=== PATIENT | female | born 1955 | race Caucasian/White ===

== ENCOUNTER → 2022-06-18 08:40 | Outpatient (BNVA) | payer MEDICARE, SELFPAY | PROVIDERS: PCP Family Medicine; Visit Provider Internal Medicine Rheumatology | DX: M05.79 Rheumatoid arthritis with rheumatoid factor of multiple sites without organ or systems involvement (principal); M81.0 Age-related osteoporosis without current pathological fracture; Z79.899 Other long term (current) drug therapy; Z71.85 Encounter for immunization safety counseling; Z79.52 Long term (current) use of systemic steroids; Z96.651 Presence of right artificial knee joint; M19.041 Primary osteoarthritis, right hand; M19.042 Primary osteoarthritis, left hand | CPT/HCPCS: 99204 ==

== ENCOUNTER 2022-07-16 12:20 | Outpatient (CLI) | payer MEDICARE, SELFPAY ==
--- NOTE | 2022-07-16 13:00 | XR_ITS ---
WS: [id number] DEXA (DUAL ENERGY X-RAY ABSORPTIOMETRY) Bone mineral density was performed using a Poxel machine. HISTORY: M81.0 - Age-related osteoporosis without current pathology... COMPARISON: 06/02/2018 Lumbar spine BMD (L1-L4): 0.878 g/cm2 T score: -2.5 Z score: -0.6 Total hip BMD: Left: 0.553 g/cm2. T score: -3.6 Z score: -2.0 Right: 0.494 g/cm2. T score: -4.1 Z score: -2.5 10 year probability of a major osteoporotic fracture is 47.5%. Compared to the prior study from 06/02/2018. Lumbar spine bone mineral density has decreased by 4.8%. Bilateral hips bone mineral density has decreased by 24.5%. XR/XR DEXA axial skeleton* [id number] IMPRESSION: OSTEOPOROSIS based upon the WHO classification for females. Significant decrease in bone mineral density within the lumbar spine and hips s mary the prior study.
== END 2022-07-16 12:21 | disposition home or self-care (01) ==
LOC: RAD 12:20
PROVIDERS: PCP Family Medicine; Visit Provider Internal Medicine Rheumatology
DX: M81.0 Age-related osteoporosis without current pathological fracture (principal)
CPT/HCPCS: 77080

== ENCOUNTER 2022-07-22 12:25 | Outpatient (CLI) | payer MEDICARE, SELFPAY | END 2022-07-22 12:26 | disposition home or self-care (01) | PROVIDERS: PCP Family Medicine; Visit Provider Family Medicine | DX: J44.9 Chronic obstructive pulmonary disease, unspecified (principal) | CPT/HCPCS: 94010; 94729 ==

== ENCOUNTER → 2022-09-09 11:19 | Outpatient (BNVA) | payer MEDICARE, SELFPAY | PROVIDERS: PCP Family Medicine; Visit Provider Internal Medicine Rheumatology | DX: M05.79 Rheumatoid arthritis with rheumatoid factor of multiple sites without organ or systems involvement (principal); Z79.899 Other long term (current) drug therapy; Z71.85 Encounter for immunization safety counseling; M81.0 Age-related osteoporosis without current pathological fracture; Z79.52 Long term (current) use of systemic steroids; Z96.651 Presence of right artificial knee joint | CPT/HCPCS: 99214 ==

== ENCOUNTER → 2023-02-04 14:17 | Outpatient (BNVA) | payer MEDICARE, SELFPAY | PROVIDERS: PCP Family Medicine; Visit Provider Internal Medicine Rheumatology | DX: M05.79 Rheumatoid arthritis with rheumatoid factor of multiple sites without organ or systems involvement (principal); Z79.899 Other long term (current) drug therapy; Z71.85 Encounter for immunization safety counseling; M81.0 Age-related osteoporosis without current pathological fracture | CPT/HCPCS: 99214 ==

== ENCOUNTER → 2023-03-17 15:29 | Outpatient (BNVA) | payer MEDICARE, SELFPAY | PROVIDERS: PCP Family Medicine; Visit Provider Nurse Practitioner Family | DX: M25.572 Pain in left ankle and joints of left foot (principal) | CPT/HCPCS: 73610 ==

== ENCOUNTER 2023-04-08 14:21 | Emergency (ER) | payer MEDICARE, SELFPAY ==
[2023-04-08 14:27] VITALS: BP 148/75; PULSE 79; RESP 18; TEMP 36.7; O2SAT 97; BMI 21.2
--- NOTE | 2023-04-08 14:37 | CTR_ITS ---
PROCEDURE INFORMATION: Exam: CT Chest With Contrast; Diagnostic Exam date and time: 04/08/2023 3:54 PM Age: 67 years old Clinical indication: Abdominal pain; Chest wall pain; Additional info: Pain post trauma TECHNIQUE: Imaging protocol: Diagnostic computed tomography of the chest with contrast. Radiation optimization: All CT scans at this facility use at least one of these dose optimization techniques: automated exposure control; mA and/or kV adjustment per patient size (includes targeted exams where dose is matched to clinical indication); or iterative reconstruction. Contrast material: OMNI 350; Contrast volume: 100 ml; Contrast route: INTRAVENOUS (IV); REPORTING DATA: Count of CT and Cardiac NM exams in prior 12 months: This patient has received 0 known CTs and 0 known cardiac nuclear medicine studies in the 12 months prior to the current study. COMPARISON: CR XR ribs BI mn 4V w CXR1V [id number] 07/23/2021 2:18 PM RADIATION DOSE METRICS: Total DLP (mGy-cm): 490 FINDINGS: Lungs: Mild emphysematous changes with some scattered subpleural blebs upper lung zones. Mild depended hypoventilatory changes with subpleural ground-glass opacities likely secondary to microatelectasis. Pleural spaces: Unremarkable. No pneumothorax. No pleural effusion. Heart: Heart is borderline enlarged. No significant coronary artery calcifications or pericardial effusion. Lymph nodes: Unremarkable. No enlarged lymph nodes. Vasculature: Scattered atherosclerotic changes of the thoracic aorta. No evidence of aortic injury aneurysm or dissection. Bones/joints: Prior right shoulder replacement. No acute bony abnormalities. Soft tissues: No evidence of mediastinal injury or hematoma. COMMENTS: In the absence of a history or active diagnosis of lung cancer, it is recommended that this patient with emphysema be evaluated for enrollment in a low dose CT lung cancer screening program. PROCEDURE INFORMATION: Exam: CT Abdomen And Pelvis With Contrast Exam date and time: 04/08/2023 3:54 PM Age: 67 years old Clinical indication: Abdominal pain; Chest wall pain; Additional info: Pain post trauma TECHNIQUE: Imaging protocol: Computed tomography of the abdomen and pelvis with contrast. Radiation optimization: All CT scans at this facility use at least one of these dose optimization techniques: automated exposure control; mA and/or kV adjustment per patient size (includes targeted exams where dose is matched to clinical indication); or iterative reconstruction. Contrast material: OMNI 350; Contrast volume: 100 ml; Contrast route: INTRAVENOUS (IV); REPORTING DATA: Count of CT and Cardiac NM exams in prior 12 months: This patient has received 0 known CTs and 0 known cardiac nuclear medicine studies in the 12 months prior to the current study. COMPARISON: CR XR thoracic spine 3V* [id number] 07/23/2022 11:28 AM RADIATION DOSE METRICS: Total DLP (mGy-cm): 252.9 FINDINGS: Lungs: Please refer to discussion of CT chest exam. Liver: Liver is unremarkable. No evidence of liver injury. Gallbladder and bile ducts: Normal. No calcified stones. No ductal dilation. Pancreas: Unremarkable. Main pancreatic duct is not significantly dilated. Spleen: Spleen is unremarkable. No evidence of splenic injury. Adrenal glands: Normal. No mass. Kidneys and ureters: Small nonobstructing left renal stone. Multiple left renal cysts measuring up to 4 cm likely benign based on density readings. Stomach and bowel: Few scattered diverticuli large bowel otherwise GI tract is unremarkable. Appendix: No evidence of appendicitis. Intraperitoneal space: Unremarkable. No free air. No significant fluid collection. Vasculature: Diffuse atherosclerotic changes of the abdominal aorta and iliac vessels with scattered calcified plaque. Small intraluminal thrombus arising from the posterior aortic wall within the upper abdominal aorta. No evidence of aortic injury.rr Lymph nodes: Unremarkable. No enlarged lymph nodes. Urinary bladder: Urinary bladder is mildly distended. 5 cm cystic structure abutting the right posterior bladder wall probably representing a large bladder diverticulum. Reproductive: Uterus has been removed. Bones/joints: Moderate multilevel degenerative changes lower lumbar spine. No acute bony abnormalities. Soft tissues: Unremarkable. CT/CT chest abdpel w/*[id number] IMPRESSION: No evidence of intrathoracic injury. IMPRESSION: 1. No evidence of abdominal or pelvic injury. 2. 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 Atherosclerotic changes with focal intraluminal thrombus upper abdominal aorta. 4. Additional chronic findings as above. COMMENTS: Consistent with the [employer]'s Incidental Findings Committee white paper (J Am Kelsie Radiol 2018): Any incidental renal lesion less than 1 cm or classified as too small to characterize, or any incidental cystic renal lesion characterized as simple-appearing, is likely benign. No follow-up imaging is recommended for these lesions per consensus recommendations based on imaging criteria.
--- NOTE | 2023-04-08 14:37 | CTR_ITS ---
PROCEDURE INFORMATION: Exam: CT Cervical Spine Without Contrast Exam date and time: 04/08/2023 3:49 PM Age: 67 years old Clinical indication: Neck pain; Additional info: Pain post fall TECHNIQUE: Imaging protocol: Computed tomography of the cervical spine without contrast. Radiation optimization: All CT scans at this facility use at least one of these dose optimization techniques: automated exposure control; mA and/or kV adjustment per patient size (includes targeted exams where dose is matched to clinical indication); or iterative reconstruction. REPORTING DATA: Count of CT and Cardiac NM exams in prior 12 months: This patient has received 0 known CTs and 0 known cardiac nuclear medicine studies in the 12 months prior to the current study. COMPARISON: CR XR thoracic spine 3V* [id number] 07/23/2022 11:28 AM RADIATION DOSE METRICS: Total DLP (mGy-cm): 160.95 FINDINGS: Bones/joints: Reversal of normal cervical lordosis likely degenerative in nature and in part secondary to degenerative spondylolisthesis C3-C4. Multilevel degenerative changes with diffuse disc space narrowing, endplate sclerosis and osteophytic lipping C3-C4, C4-C5, C5-C6 and C6-C7. Moderate degenerative facet arthrosis present on the left at C3-C4. No severe spinal or foraminal stenosis. No evidence of fracture or traumatic subluxation. Lungs: Lung apices are normal. Soft tissues: Unremarkable. CT/CT cervical spin wo con* [id number] IMPRESSION: 1. No acute bony abnormalities. 2. Multilevel degenerative changes throughout the cervical spine with mild degenerative spondylolisthesis C3-C4.
--- NOTE | 2023-04-08 14:37 | ECG_ITS ---
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 Measurements Intervals [place] Rate: 74 P: 46 DE: 134 QRS: 43 QRSD: 86 T: 42 QT: 351 QTc: 391 Interpretive Statements SINUS RHYTHM WITH SINUS ARRHYTHMIA INTERPRETATION BASED ON A DEFAULT AGE OF 40 YEARS No previous ECG available for comparison Electronically Signed On 04-08-2023 17:00:25 CDT by Ken Manzano M.D. [email or web address] health [email or web address]/[id number] f
[2023-04-08] MEDS: morphine 4 mg/mL SDV 1 mL IVP (14:46)
[2023-04-08] MEDS: ondansetron 2 mg/ML SDV 2 mL 4 MG IVP (14:46)
[2023-04-08 14:47] VITALS: BP 148/75; PULSE 75
[2023-04-08] MEDS: nitroglycerin 1 gm/inch oint Pkt 0.5 INCH TOPICAL (14:47)
[2023-04-08 15:01] LABS: Basophils # 0.1 10^3/uL (0.0-0.1); Basophils % 0.6 %; Eosinophils # 0.2 10^3/uL (0.0-0.8); Eosinophils % 1.7 %; Hematocrit 36.4 % (37.0-47.0); Hemoglobin 11.6 g/dL (11.5-15.3); Lymphocytes # 2.6 10^3/uL (0.8-4.8); Lymphocytes % 27.4 %; Mean Corpuscular HGB Conc 31.9 g/dL (30.0-36.0); Mean Corpuscular Volume 106.7 fl (81-99); Mean Platelet Volume 9.8 fL (7.4-10.4); Monocytes % 10.1 %; Neutrophils # 5.65 10^3/uL (1.8-7.7); Neutrophils % 59.8 %; Nucleated Red Blood Cells % 0 %; Platelet Count 290 10^3/cmm (130-400); Red Blood Count 3.41 10^6/uL (4.1-5.3); Red Cell Distribution Width 13.2 % (12.1-15.1); White Blood Count 9.5 10^3/uL (4.0-10.0)
[2023-04-08 15:34] LABS: Alanine Aminotransferase 11 U/L (0-33); Albumin Level 3.8 g/dL (3.5-5.2); Alkaline Phosphatase 63 U/L (35-105); Aspartate Amino Transferase 15 U/L (0-32); Blood Urea Nitrogen 13 mg/dL (8-23); Calcium 8.7 mg/dL (8.5-10.5); Carbon Dioxide 26 mmol/L (22-29); Chloride 103 mmol/L (98-107); Glomerular Filtration Rate 62.1 mL/min (90-130); Glucose 90 mg/dL (65-115); Lipase 42 U/L (13-60); Osmolality Calculated 288 mOsm/kg (285-295); Sodium 139 mmol/L (136-145); Total Bilirubin 0.3 mg/dL (0.15-1.2); Total Protein 5.8 g/dL (6.6-8.7)
[2023-04-08 15:37] LABS: Troponin(5th) Baseline 12 ng/L (0-10)
--- NOTE | 2023-04-08 15:51 | W.ED.CHESTPA ---
HPI - Chest Pain General: Chief Complaint: Chest Pain Stated Complaint: chest chain, LT arm pain, neck pain Time Seen by Provider: 04/08/23 14:31 History of Present Illness: 67-year-old female presents emergency room with left-sided chest pain neck pain and arm pain that started about few hours ago. Patient described the pain as aching sensation with severity of 7 out of 10 especially with movement and deep breathing. She further feels that she fell 3 days ago and landed on a box. Patient did not seek any medical attention after the fall with any head injury, loss of consciousness, nausea, vomiting, blurry vision or change in vision. Patient denies any swelling, coughing, coughing up blood or vomiting blood. No leg swelling or calf tenderness. Associated symptoms: Deny abdominal pain, dyspnea, fever(s), nausea, palpitations, syncope or vomiting Review of Systems General: Reports: 10 or more systems reviewed and unremarkable except in HPI and below Const: Denies: fever(s), chills, body aches, change in weight, fatigue or malaise Eyes: Denies: change in vision, blurry vision or blind spots Card: Reports: chest pain; Denies: palpitations, irregular heart rhythm, edema, swelling of feet/ankles, lightheadedness, syncope or pre-syncope Resp: Denies: dyspnea, productive cough or non-productive cough GI: Denies: abdominal pain, nausea, vomiting, hematemesis, coffee ground emesis or dysphagia Musc: Reports: neck pain and extremity pain; Denies: extremity swelling, joint swelling, joint redness, joint warmth, joint stiffness, limited range of motion, muscle weakness or decrease in muscle mass Neuro: Denies: headache(s), numbness in extremities, weakness in extremities, lack of coordination, frequent falls, dizziness, vertigo or confusion PFSH ED PFSH: Medical History Acute rheumatoid arthritis Bulging disc Cervical disc disease DJD (degenerative joint disease), lumbar Fibromyalgia High risk medication use Immunization counseling Insomnia Neuropathy Osteoporosis Rheumatoid arthritis Seropositive rheumatoid arthritis of multiple sites Surgical History H/O shoulder replacement right History of appendectomy History of hysterectomy Total knee replacement status right Family History Other CHF (congestive heart failure) Cancer Chronic kidney disease (CKD) Diabetes Family history of premature coronary artery disease Rheumatoid arthritis Denies family history of Lupus Lung disease Stroke Social History Smoking and tobacco status: current every day smoker Physical Exam Neck/C-Spine: COMMON NORMALS: no JVD and Thyroid normal GENERAL: No lymphadenopathy, Yes tender (Pain upon palpation mostly on the left side of the neck. No palpable mass ), No torticollis, No tracheal deviation, No tracheostomy present, No JVD, No submandibular swelling and No Meningeal signs present THYROID: Thyroid normal, symmetrical, not diffusely enlarged, not firm and no lateral enlargement CAROTIDS: Yes normal carotid upstroke, No delayed carotid upstroke and No bounding pulses Chest: CHEST: Yes localized rib tenderness with anteroposterior compression, No Sternal flail present, No mass, No sinus tracts, Yes tenderness, No laceration, No abrasion, No Ecchymosis present, No wounds, No Surgical scars present (Chest), No Vascular access present, No Pacemaker present and No rash Chest images (female): 1. Areas with tenderness upon palpation no palpable deformity, no laceration or obvious rash or lesion. Pain with arm movement. Resp: COMMON NORMALS: normal respiratory effort, No retractions, No use of accessory muscles, clear to auscultation bilaterally and percussion normal AUSCULTATION: clear to auscultation bilaterally PERCUSSION: percussion normal Cardio: COMMON NORMALS: no JVD, regular rate, regular rhythm, S1 normal heart sound present, S2 normal heart sound present, No gallops present (Cardio), No clicks present (Cardio), No murmurs present (Cardio), No rub (Cardio) and Peripheral pulses 2+ throughout RATE: regular rate RHYTHM: regular rhythm HEART SOUNDS: S1 normal heart sound present and S2 normal heart sound present PERIPHERAL PULSES: Peripheral pulses 2+ throughout GI: COMMON NORMALS: Normal to inspection, nondistended, normoactive bowel sounds present, Soft to palpation, non-tender, No hepatosplenomegaly present, no masses and no bruits PALPATION: Yes Soft to palpation and Yes No hepatosplenomegaly present Course Vital Signs: Vital signs: Vital Signs Temperature 98.0 F 04/08/23 14:27 Pulse Rate 75 04/08/23 16:46 Respiratory Rate 15 04/08/23 17:39 Blood Pressure 157/74 04/08/23 16:46 Pulse Oximetry 98 04/08/23 16:46 Oxygen Delivery Me thod Room Air 04/08/23 14:27 MDM - Chest Pain Medical Decision Making Patient was medical for the emergency room. Patient has extensive work-up done including CT, troponin x2. Patient has been comfortable with pain medication. Discussed CT findings with patient. He was reassured and will be discharged home with close follow-up PCP. Lab Data 04/08/23 14:43 04/08/23 14:43 Radiology Impressions Cervical Spine CT 04/08/23 14:37 IMPRESSION: 1. No acute bony abnormalities. 2. Multilevel degenerative changes throughout the cervical spine with mild degenerative spondylolisthesis C3-C4. Chest/Abdomen/Pelvis CT 04/08/23 14:37 IMPRESSION: No evidence of intrathoracic injury. IMPRESSION: 1. No evidence of abdominal or pelvic injury. 2. 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 Atherosclerotic changes with focal intraluminal thrombus upper abdominal aorta. 4. Additional chronic findings as above. COMMENTS: Consistent with the [place] [employer]'s Incidental Findings Committee white paper (J Am Kelsie Radiol 2018): Any incidental renal lesion less than 1 cm or classified as too small to characterize, or any incidental cystic renal lesion characterized as simple-appearing, is likely benign. No follow-up imaging is recommended for these lesions per consensus recommendations based on imaging criteria. Laboratory Results WBC 9.5 10^3/uL (4.0-10.0) 04/08/23 14:43 RBC 3.41 10^6/uL (4.1-5.3) L 04/08/23 14:43 Hgb 11.6 g/dL (11.5-15.3) 04/08/23 14:43 Hct 36.4 % (37.0-47.0) L 04/08/23 14:43 MCV 106.7 fl (81-99) H 04/08/23 14:43 MCH 34.0 pg (28.0-34.0) 04/08/23 14:43 MCHC 31.9 g/dL (30.0-36.0) 04/08/23 14:43 RDW 13.2 % (12.1-15.1) 04/08/23 14:43 Plt Count 290 10^3/cmm (130-400) 04/08/23 14:43 MPV 9.8 fL (7.4-10.4) 04/08/23 14:43 Neut % (Auto) 59.8 % 04/08/23 14:43 Lymph % (Auto) 27.4 % 04/08/23 14:43 Whitman % (Auto) 10.1 % 04/08/23 14:43 Eos % (Auto) 1.7 % 04/08/23 14:43 Baso % (Auto) 0.6 % 04/08/23 14:43 Neut # (Auto) 5.65 10^3/uL (1.8-7.7) 04/08/23 14:43 Lymph # (Auto) 2.6 10^3/uL (0.8-4.8) 04/08/23 14:43 Whitman # (Auto) 1.0 10^3/uL (0.2-0.9) H 04/08/23 14:43 Eos # (Auto) 0.2 10^3/uL (0.0-0.8) 04/08/23 14:43 Baso # (Auto) 0.1 10^3/uL (0.0-0.1) 04/08/23 14:43 Nucleated RBC % (auto) 0 % 04/08/23 14:43 Nucleated RBCs # 0.0 /100WBC 04/08/23 14:43 Sodium 139 mmol/L (136-145) 04/08/23 14:43 Potassium 4.0 mmol/L (3.5-5.1) 04/08/23 14:43 Chloride 103 mmol/L (98-107) 04/08/23 14:43 Carbon Dioxide 26 mmol/L (22-29) 04/08/23 14:43 Anion Gap 14.0 (5-19) 04/08/23 14:43 BUN 13 mg/dL (8-23) 04/08/23 14:43 Creatinine 0.9 mg/dL (0.5-0.9) 04/08/23 14:43 GFR Calculation 62.1 mL/min (90-130) L 04/08/23 14:43 Glucose 90 mg/dL (65-115) 04/08/23 14:43 Calculated Osmolality 288 mOsm/kg (285-295) 04/08/23 14:43 Calcium 8.7 mg/dL (8.5-10.5) 04/08/23 14:43 Total Bilirubin 0.3 mg/dL (0.15-1.2) 04/08/23 14:43 AST 15 U/L (0-32) 04/08/23 14:43 ALT 11 U/L (0-33) 04/08/23 14:43 Alkaline Phosphatase 63 U/L (35-105) 04/08/23 14:43 Troponin T Baseline 12 ng/L (0-10) H 04/08/23 14:43 Troponin T 120 Minute 6.57 ng/L (0-10) 04/08/23 16:52 Delta Troponin T -5.43 ABS# (0-10) L 04/08/23 16:52 Total Protein 5.8 g/dL (6.6-8.7) L 04/08/23 14:43 Albumin 3.8 g/dL (3.5-5.2) 04/08/23 14:43 Globulin 2.0 g/dL (1.3-4.6) 04/08/23 14:43 Lipase 42 U/L (13-60) 04/08/23 14:[address] Chest: My impression: No obvious acute findings chronic changes noted. EKG Data EKG 1: Interpretation: Sinus rhythm rate of [address] elevation. Interval 134 QT interval of 351 Other Data Heart score for this patient is 2 standard age presenting symptoms. Patient with negative troponin negative EKG and limited Discharge Plan Discharge Patient Disposition: Home Clinical Impression: Chest pain, Chest wall contusion, Myalgia, Fall Condition: Stable Prescriptions: New ultram 50 mg PO BID PRN (Reason: pain) Qty: 20 0RF flexeril 5 mg PO TID PRN (Reason: pain ) Qty: 25 0RF No Action potassium gluconate 550 mg (90 mg) tablet 550 mg PO DAILY vitamin B complex [B Complex-Vitamin B12] Tablet 1 tab PO DAILY biotin 10,000 mcg capsule 10,000 mcg PO cholecalciferol (vitamin D3) 25 mcg (1,000 unit) capsule 25 mcg PO DAILY zinc acetate PO gabapentin 300 mg capsule 300 mg PO QID Humira 40 mg/0.8 mL syringe kit See Rx Instructions SUBCUT .COMPLEX Qty: 2 3RF Rx Instructions: inject one - 40 mg/0.8 mL syringe every 2 weeks SUBCUT diclofenac sodium 1 % gel 2 g topical QID Qty: 100 2RF Rx Instructions: apply to affected area as needed folic acid 1 mg tablet 1 mg PO DAILY Qty: 90 3RF methotrexate sodium 2.5 mg tablet See Rx Instructions PO .Q7days Qty: 30 3RF Rx Instructions: take 6 tabs on same day once a week PO .Q7days; prednisone 5 mg tablet 7.5 mg PO DAILY Qty: 135 1RF tramadol 50 mg tablet 50 mg PO TID PRN (Reason: pain) Qty: 60 1RF Discharge Orders: Discharge ED (Routine); Ordered 04/08/23 Ordered By: Shanda Longoria Referrals: Vasu Saeed MD [Primary Care Provider] - Patient Instructions: Opioid Safety, Pain Management Coding Level of Care Code ED Drum Attendant for Whitney Hagan
[2023-04-08] MEDS: iohexol 350 mg/mL 500 mL Btl (per mL) IV (16:11)
[2023-04-08 16:46] VITALS: BP 157/74; PULSE 75; RESP 21; O2SAT 98
[2023-04-08 17:39] VITALS: RESP 15
[2023-04-08] MEDS: HYDROmorphone 1 mg/mL INJ 1 mL 0.5 MG IVP (17:39)
[2023-04-08 17:53] LABS: Troponin 5 2HR 6.57 ng/L (0-10)
[2023-04-08 17:56] LABS: Troponin 5 2HR Delta -5.43 ABS# (0-10)
[2023-04-08] MEDS: TRAMadol 50 mg Tablet 100 MG PO (19:19)
[2023-04-08 19:20] VITALS: BP 134/72; PULSE 67; RESP 16
[2023-04-08 19:23] VITALS: BP 134/72; PULSE 67; RESP 16; TEMP 36.7; O2SAT 98
--- NOTE | 2023-04-08 23:09 | ED_ITS ---
HPI - Chest Pain General: Chief Complaint: Chest Pain Stated Complaint: chest chain, LT arm pain, neck pain Time Seen by Provider: 04/08/23 14:31 PFSH ED PFSH: Medical History Acute rheumatoid arthritis Bulging disc Cervical disc disease DJD (degenerative joint disease), lumbar Fibromyalgia High risk medication use Immunization counseling Insomnia Neuropathy Osteoporosis Rheumatoid arthritis Seropositive rheumatoid arthritis of multiple sites Surgical History H/O shoulder replacement right History of appendectomy History of hysterectomy Total knee replacement status right Family History Other CHF (congestive heart failure) Cancer Chronic kidney disease (CKD) Diabetes Family history of premature coronary artery disease Rheumatoid arthritis Denies family history of Lupus Lung disease Stroke Social History Smoking and tobacco status: current every day smoker Course Vital Signs: Vital signs: Vital Signs Temperature 98.0 F 04/08/23 19:23 Pulse Rate 67 04/08/23 19:23 Respiratory Rate 16 04/08/23 19:23 Blood Pressure 134/72 04/08/23 19:23 Pulse Oximetry 98 04/08/23 19:23 Oxygen Delivery Me thod Room Air 04/08/23 14:27 MDM - Chest Pain Lab Data 04/08/23 14:43 04/08/23 14:43 Radiology Impressions Cervical Spine CT 04/08/23 14:37 IMPRESSION: 1. No acute bony abnormalities. 2. Multilevel degenerative changes throughout the cervical spine with mild degenerative spondylolisthesis C3-C4. Chest/Abdomen/Pelvis CT 04/08/23 14:37 IMPRESSION: No evidence of intrathoracic injury. IMPRESSION: 1. No evidence of abdominal or pelvic injury. 2. 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 Atherosclerotic changes with focal intraluminal thrombus upper abdominal aorta. 4. Additional chronic findings as above. COMMENTS: Consistent with the [place] [employer]'s Incidental Findings Committee white paper (J Am Kelsie Radiol 2018): Any incidental renal lesion less than 1 cm or classified as too small to characterize, or any incidental cystic renal lesion characterized as simple-appearing, is likely benign. No follow-up imaging is recommended for these lesions per consensus recommendations based on imaging criteria. Laboratory Results WBC 9.5 10^3/uL (4.0-10.0) 04/08/23 14:43 RBC 3.41 10^6/uL (4.1-5.3) L 04/08/23 14:43 Hgb 11.6 g/dL (11.5-15.3) 04/08/23 14:43 Hct 36.4 % (37.0-47.0) L 04/08/23 14:43 MCV 106.7 fl (81-99) H 04/08/23 14:43 MCH 34.0 pg (28.0-34.0) 04/08/23 14:43 MCHC 31.9 g/dL (30.0-36.0) 04/08/23 14:43 RDW 13.2 % (12.1-15.1) 04/08/23 14:43 Plt Count 290 10^3/cmm (130-400) 04/08/23 14:43 MPV 9.8 fL (7.4-10.4) 04/08/23 14:43 Neut % (Auto) 59.8 % 04/08/23 14:43 Lymph % (Auto) 27.4 % 04/08/23 14:43 [place] % (Auto) 10.1 % 04/08/23 14:43 Eos % (Auto) 1.7 % 04/08/23 14:43 Baso % (Auto) 0.6 % 04/08/23 14:43 Neut # (Auto) 5.65 10^3/uL (1.8-7.7) 04/08/23 14:43 Lymph # (Auto) 2.6 10^3/uL (0.8-4.8) 04/08/23 14:43 [place] # (Auto) 1.0 10^3/uL (0.2-0.9) H 04/08/23 14:43 Eos # (Auto) 0.2 10^3/uL (0.0-0.8) 04/08/23 14:43 Baso # (Auto) 0.1 10^3/uL (0.0-0.1) 04/08/23 14:43 Nucleated RBC % (auto) 0 % 04/08/23 14:43 Nucleated RBCs # 0.0 /100WBC 04/08/23 14:43 Sodium 139 mmol/L (136-145) 04/08/23 14:43 Potassium 4.0 mmol/L (3.5-5.1) 04/08/23 14:43 Chloride 103 mmol/L (98-107) 04/08/23 14:43 Carbon Dioxide 26 mmol/L (22-29) 04/08/23 14:43 Anion Gap 14.0 (5-19) 04/08/23 14:43 BUN 13 mg/dL (8-23) 04/08/23 14:43 Creatinine 0.9 mg/dL (0.5-0.9) 04/08/23 14:43 GFR Calculation 62.1 mL/min (90-130) L 04/08/23 14:43 Glucose 90 mg/dL (65-115) 04/08/23 14:43 Calculated Osmolality 288 mOsm/kg (285-295) 04/08/23 14:43 Calcium 8.7 mg/dL (8.5-10.5) 04/08/23 14:43 Total Bilirubin 0.3 mg/dL (0.15-1.2) 04/08/23 14:43 AST 15 U/L (0-32) 04/08/23 14:43 ALT 11 U/L (0-33) 04/08/23 14:43 Alkaline Phosphatase 63 U/L (35-105) 04/08/23 14:43 Troponin T Baseline 12 ng/L (0-10) H 04/08/23 14:43 Troponin T 120 Minute 6.57 ng/L (0-10) 04/08/23 16:52 Delta Troponin T -5.43 ABS# (0-10) L 04/08/23 16:52 Total Protein 5.8 g/dL (6.6-8.7) L 04/08/23 14:43 Albumin 3.8 g/dL (3.5-5.2) 04/08/23 14:43 Globulin 2.0 g/dL (1.3-4.6) 04/08/23 14:43 Lipase 42 U/L (13-60) 04/08/23 14:43 Discharge Plan Discharge Patient Disposition: Home Clinical Impression: Chest pain, Chest wall contusion, Myalgia, Fall Condition: Stable Prescriptions: New ultram 50 mg PO BID PRN (Reason: pain) Qty: 20 0RF flexeril 5 mg PO TID PRN (Reason: pain ) Qty: 25 0RF No Action potassium gluconate 550 mg (90 mg) tablet 550 mg PO DAILY vitamin B complex [B Complex-Vitamin B12] Tablet 1 tab PO DAILY biotin 10,000 mcg capsule 10,000 mcg PO cholecalciferol (vitamin D3) 25 mcg (1,000 unit) capsule 25 mcg PO DAILY zinc acetate PO gabapentin 300 mg capsule 300 mg PO QID Humira 40 mg/0.8 mL syringe kit See Rx Instructions SUBCUT .COMPLEX Qty: 2 3RF Rx Instructions: inject one - 40 mg/0.8 mL syringe every 2 weeks SUBCUT diclofenac sodium 1 % gel 2 g topical QID Qty: 100 2RF Rx Instructions: apply to affected area as needed folic acid 1 mg tablet 1 mg PO DAILY Qty: 90 3RF methotrexate sodium 2.5 mg tablet See Rx Instructions PO .Q7days Qty: 30 3RF Rx Instructions: take 6 tabs on same day once a week PO .Q7days; prednisone 5 mg tablet 7.5 mg PO DAILY Qty: 135 1RF tramadol 50 mg tablet 50 mg PO TID PRN (Reason: pain) Qty: 60 1RF Discharge Orders: Discharge ED (Routine); Ordered 04/08/23 Ordered By: Shanda Longoria Referrals: Vasu Saeed MD [Primary Care Provider] - Patient Instructions: Opioid Safety, Pain Management Coding Level of Care Code ED Data Center Solutions Architect for Whitney Hagan
== END 2023-04-08 19:24 | disposition home or self-care (01) ==
PROVIDERS: Emergency Provider Family Medicine; PCP Family Medicine
DX: S20.219A Contusion of unspecified front wall of thorax, initial encounter (principal); M79.10 Myalgia, unspecified site; F17.200 Nicotine dependence, unspecified, uncomplicated; Z79.899 Other long term (current) drug therapy; W19.XXXA Unspecified fall, initial encounter
CPT/HCPCS: 36415; 71260; 72125; 74177; 80053; 83690; 84484; 85025; 93005; 96374; 96375; 99285; J1170; J2270; J2405; Q9967

== ENCOUNTER → 2023-05-11 11:08 | Outpatient (BNVA) | payer MEDICARE, SELFPAY | PROVIDERS: PCP Family Medicine; Visit Provider Internal Medicine Rheumatology | DX: M05.79 Rheumatoid arthritis with rheumatoid factor of multiple sites without organ or systems involvement (principal); Z79.899 Other long term (current) drug therapy; Z71.85 Encounter for immunization safety counseling; M81.0 Age-related osteoporosis without current pathological fracture; Z79.52 Long term (current) use of systemic steroids; Z96.651 Presence of right artificial knee joint; M19.041 Primary osteoarthritis, right hand; M19.042 Primary osteoarthritis, left hand | CPT/HCPCS: 99214 ==

== ENCOUNTER → 2023-08-10 10:25 | Outpatient (BNVA) | payer MEDICARE, SELFPAY | PROVIDERS: PCP Family Medicine; Visit Provider Internal Medicine Rheumatology | DX: Z79.899 Other long term (current) drug therapy (principal); M05.79 Rheumatoid arthritis with rheumatoid factor of multiple sites without organ or systems involvement; Z71.85 Encounter for immunization safety counseling; M81.0 Age-related osteoporosis without current pathological fracture | CPT/HCPCS: 99214 ==

== ENCOUNTER → 2024-02-23 11:02 | Outpatient (BNVA) | payer MEDICARE, SELFPAY | PROVIDERS: PCP Family Medicine; Visit Provider Internal Medicine Rheumatology | DX: M05.79 Rheumatoid arthritis with rheumatoid factor of multiple sites without organ or systems involvement (principal); Z79.899 Other long term (current) drug therapy; Z71.85 Encounter for immunization safety counseling; M81.0 Age-related osteoporosis without current pathological fracture | CPT/HCPCS: 36415; 80076; 82565; 85025; 86140; 99214 ==

== ENCOUNTER 2024-04-29 20:28 | Emergency (ER) | payer MEDICARE, SELFPAY ==
[2024-04-29 20:34] VITALS: BP 119/70; PULSE 76; RESP 16; TEMP 36.7; O2SAT 95
--- NOTE | 2024-04-29 20:47 | XRR_ITS ---
PROCEDURE INFORMATION: Exam: XR Left Knee Exam date and time: 04/29/2024 8:52 PM Age: 68 years old Clinical indication: Left; Prior surgery; Surgery date: 6+ months; Surgery type: Orif lt patella; Patient HX: Lt knee pain/swelling post hyperextension injury; HX lt knee orif TECHNIQUE: Imaging protocol: Radiologic exam of the left knee. Views: 3 views. COMPARISON: CR XR knee LT 3V* [id number] 05/05/2018 3:31 PM FINDINGS: Bones/joints: Linear sclerosis along the proximal medial tibial metadiaphysis is new from prior available remote imaging. Otherwise no evidence of acute fracture or new malalignment. Patellar internal fixation hardware again noted without hardware failure or loosening. Healed fracture of the interpolar patella with mild residual posterior deformities unchanged. No significant joint effusion. Moderate atherosclerotic calcification of the femoral and calf arteries noted. Soft tissues: See Bones/joints finding. XR/XR knee LT 3V* [id number] IMPRESSION: Linear sclerosis along the medial tibial metadiaphysis could be due to chronic osseous stress change or trabecular injury. Otherwise no acute fracture identified.
--- NOTE | 2024-04-29 20:50 | ED_ITS ---
HPI - Extremity Problem General: Chief complaint: Extremity Injury, Lower Stated complaint: left knee injury Time Seen by Provider: 04/29/24 20:43 Source: patient Mode of arrival: wheelchair Limitations: no limitations History of Present Illness: Patient is a 68-year-old female who presents the emergency department complaining of left knee pain prior to arrival. Patient states she was hit directly to the lateral aspect of her left knee by a large dog, notes pain to the medial aspect. History of bilateral knee replacements. States she has walked since, however there is increasingly severe pain and she is having trouble straightening the leg. No distal neurovascular deficits reported. Has not taken anything for pain. No other [id number] treatments at this time. MD Complaint: joint pain Onset (ago): hour(s) Pain Consistency: constant Location: left and knee Radiation: none Relieving factors: nothing Exacerbating factors: range of motion, weight bearing and walking Associated symptoms: Reports no associated symptoms; Deny chest pain, fever(s) or rash Review of Systems General: Reports: 10 or more systems reviewed and unremarkable except in HPI and below Const: Denies: fever(s) or chills Card: Denies: chest pain Resp: Denies: dyspnea or productive cough GI: Denies: abdominal pain, nausea, vomiting or diarrhea : Denies: flank pain Musc: Reports: joint pain and limited range of motion; Denies: neck pain, back pain, extremity pain, extremity swelling, joint swelling, joint redness, joint warmth or muscle weakness Skin/Breast: Denies: rash Neuro: Denies: headache(s), numbness in extremities or weakness in extremities PFS ED PFSH: Medical History Immunization counseling High risk medication use Seropositive rheumatoid arthritis of multiple sites Acute rheumatoid arthritis Cervical disc disease Rheumatoid arthritis Fibromyalgia Osteoporosis DJD (degenerative joint disease), lumbar Neuropathy Insomnia Bulging disc Surgical History History of hysterectomy Total knee replacement status right H/O shoulder replacement right History of appendectomy Family History Other Cancer Chronic kidney disease (CKD) Congestive heart failure (CHF) Diabetes Family history of premature coronary artery disease Rheumatoid arthritis Denies family history of Lupus Lung disease Stroke Social History Smoking and tobacco/nicotine status: never used tobacco/nicotine Physical Exam Const: COMMON NORMALS: no acute distress, patient oriented x3, no limitations, healthy appearing, alert and well nourished HENMT: COMMON NORMALS: normocephalic and atraumatic HEAD & SCALP: normocephalic and atraumatic Neck/C-Spine: COMMON NORMALS: full ROM, supple and no meningeal signs Resp: COMMON NORMALS: normal respiratory effort, No use of accessory muscles and clear to auscultation bilaterally AUSCULTATION: clear to auscultation bilaterally Cardio: COMMON NORMALS: regular rate and regular rhythm RATE: regular rate RHYTHM: regular rhythm Extremity: COMMON NORMALS: capillary refill normal, no joint enlargement and no clubbing, cyanosis or edema NARRATIVE EXTREMITY EXAM: Bilateral anterior scars to her knees. No obvious edema of the left knee joint. Moderate to severe tenderness to palpation of the medial joint line of the left knee. No appreciable joint effusion at this time. Pain with extension. Special testing of the knee not attempted due to patient's reported pain. Neuro: COMMON NORMALS: patient oriented x3, moves all extremities, no focal motor deficits and no sensory deficits noted SENSORIUM/ORIENTATION: Yes alert MENINGEAL SIGNS: Yes no meningeal signs Skin: COMMON NORMALS: no rashes or lesions noted GENERAL SKIN EXAM: no rashes or lesions noted Course Vital Signs: Vital signs: Vital Signs Temperature 98.0 F 04/29/24 20:34 Pulse Rate 73 04/29/24 22:19 Respiratory Rate 16 04/29/24 22:19 Blood Pressure 131/67 04/29/24 22:19 Pulse Oximetry 96 04/29/24 22:19 MDM - Extremity (Nontraumatic) Medical Decision Making Patient evaluated today after a left knee injury when a dog struck her left leg. History of knee surgery on the left side, upon further investigation she had patella fracture that was surgically fixed. Was ambulatory initially after the incident, though this has become increasingly difficult due to the pain. She was given a shot of Toradol here. Vitals normal and her distal lower left extremity exam unremarkable. She did have some medial tenderness to palpation, though laxity of the joint unable to be assessed due to her intolerance to pain. Upon recheck she does note improvement after Toradol, however still states she has pain with extending her left leg. X-ray commented on potential stress change versus trabecular injury, and she will be referred to orthopedics for further evaluation. She denies a's compression device at this time and will be discharged home with return precautions given. RICE therapy discussed. Lab Data Radiology Impressions Knee X-Ray 04/29/24 20:47 IMPRESSION: Linear sclerosis along the medial tibial metadiaphysis could be due to chronic osseous stress change or trabecular injury. Otherwise no acute fracture identified. All radiology interpretation(s) finalized by discharge Discharge Plan Discharge Patient Disposition: Home Clinical Impression: Injury of knee, left Qualifiers: Encounter type: initial encounter Qualified Code(s): S89.92XA - Unspecified injury of left lower leg, initial encounter Condition: Stable Prescriptions: No Action potassium gluconate 550 mg (90 mg) tablet 550 mg PO DAILY vitamin B complex [B Complex-Vitamin B12] Tablet 1 tab PO DAILY biotin 10,000 mcg capsule 10,000 mcg PO cholecalciferol (vitamin D3) 25 mcg (1,000 unit) capsule 25 mcg PO DAILY zinc acetate PO gabapentin 300 mg capsule 300 mg PO QID diclofenac sodium 1 % gel 2 g topical QID Qty: 100 2RF Rx Instructions: apply to affected area as needed folic acid 1 mg tablet 1 mg PO DAILY Qty: 90 3RF fluoxetine PO pantoprazole [Protonix] PO hydroxychloroquine 200 mg tablet 200 mg PO DAILY Qty: 90 1RF methotrexate sodium 2.5 mg tablet See Rx Instructions PO .Q7days Qty: 90 1RF Rx Instructions: take 6 tabs on same day once a week PO .Q7days; prednisone 5 mg tablet 7.5 mg PO DAILY Qty: 135 1RF Humira Pen 40 mg/0.8 mL pen injector kit 40 mg SUBCUT Q14D Qty: 6 0RF tramadol 50 mg tablet 50 mg PO TID PRN (Reason: pain) Qty: 60 1RF flexeril 5 mg PO TID PRN (Reason: pain ) Qty: 25 0RF Discharge Orders: Discharge ED (Routine); Ordered 04/29/24 Ordered By: Tulio Wharton Referrals: Vasu Saeed MD [Primary Care Provider] - Discharge Diet: Usual diet Discharge Activity: Increase activity as tolerated Patient Instructions: Knee Pain (ED) Activity Restrictions/Additional Instructions: Follow-up with orthopedics as discussed. Tylenol or ibuprofen for pain. Gently increase your range of motion as tolerated and weight-bear as tolerated as well. Otherwise follow-up with primary care as needed and return with any new or worsening symptoms. Coding Level of Care Code ED Cardiovascular Surgical Tech for Whitney Hagan
[2024-04-29] MEDS: ketorolac 60 mg/2 mL INJ IM (21:29)
[2024-04-29 22:19] VITALS: BP 131/67; PULSE 73; RESP 16; O2SAT 96
--- NOTE | 2024-04-30 03:18 | DCPLANNER ---
Message sent to Ortho for a follow up on a left knee injury-
== END 2024-04-29 22:20 | disposition home or self-care (01) ==
PROVIDERS: Emergency Provider Physician Assistant; PCP Family Medicine
DX: S89.92XA Unspecified injury of left lower leg, initial encounter (principal); W54.1XXA Struck by dog, initial encounter
CPT/HCPCS: 73562; 96372; 99284; J1885

== ENCOUNTER → 2024-05-10 10:29 | Outpatient (BNVA) | payer MEDICARE, SELFPAY | PROVIDERS: PCP Family Medicine; Visit Provider Nurse Practitioner | DX: M17.12 Unilateral primary osteoarthritis, left knee (principal); M25.362 Other instability, left knee | CPT/HCPCS: 73560; 73565; 99204 ==

== ENCOUNTER 2024-05-12 13:00 | Outpatient (CLI) | payer MEDICARE, SELFPAY ==
--- NOTE | 2024-05-12 13:00 | MR_ITS ---
WS: [id number] MRI LEFT KNEE HISTORY: LEFT knee pain with instability. Prior injury. COMPARISON: Radiograph 05/10/2024 Anterior cruciate ligament: Intact. Posterior cruciate ligament: Intact. Medial collateral ligament: There is fluid and increased T2 signal surrounding the MCL, greatest abov e the knee joint but no tear identified. Posterior lateral corner structures: Intact. There is a small amount of fluid near the fibular collat eral ligament origin from the femoral condyle consistent with at least a partial tear. Medial menisci: Intact. Normal signal, size and shape. Lateral meniscus: Intact. Normal signal, size and shape. Extensor mechanism: Distal quadriceps tendon and patellar tendons are intact. Tendons are partially o bscured by artifact from the patellar fixation hardware. Fluid and soft tissue: Small suprapatellar joint effusion. No Gillette's cyst. Osseous and articular structures: Patellofemoral compartment: Patellofemoral articulation is poorly visualized due to artifact from the hardware in the patella. Medial compartment: Mild narrowing of the medial compartment. Mild chondromalacia. Lateral compartment: Mild narrowing the lateral compartment with mild chondromalacia. There is abnormal signal involving the medial tibial metaphysis consistent with a fracture which is n ondisplaced. There is marrow edema extending anterior to posterior through the medial tibial diaphysi s. There is a smaller amount of edema just distal to the lateral tibial plateau which is probably tra becular injury. Focal marrow edema in the medial femoral condyle. There is trabecular injury and smal l microfractures. No displacement. MR/MR knee LT wo con* [id number] IMPRESSION: 1. Nondisplaced acute fracture involving the medial tibial metaphysis. This co rresponds to the area of sclerosis seen on the recent radiographs. 2. Additional marrow edema and trabecular injury just below the lateral tibial plateau. 3. Marrow edema and trabecular injury medial femoral condyle with suspected mi crofractures. 4. Prior fixation hardware throughout the patella. 5. Fluid surrounding the MCL but no tear confirmed. 6. Partial tear fibular collateral ligament at the femoral condyle.
== END 2024-05-12 13:01 | disposition home or self-care (01) ==
LOC: RAD 13:01
PROVIDERS: PCP Family Medicine; Visit Provider Nurse Practitioner
DX: S82.135A Nondisplaced fracture of medial condyle of left tibia, initial encounter for closed fracture (principal); Z96.652 Presence of left artificial knee joint; S83.402A Sprain of unspecified collateral ligament of left knee, initial encounter
CPT/HCPCS: 73721

== ENCOUNTER 2024-05-13 06:00 | Outpatient (CLI) | payer MEDICARE, SELFPAY | END 2024-05-13 23:59 | disposition home or self-care (01) | LOC: SPT 05-17 14:46 | PROVIDERS: Visit Provider Nurse Practitioner | DX: Z46.89 Encounter for fitting and adjustment of other specified devices (principal); M25.362 Other instability, left knee; M17.12 Unilateral primary osteoarthritis, left knee | CPT/HCPCS: 99214; L1832 ==

== ENCOUNTER → 2024-06-01 08:43 | Outpatient (BNVA) | payer MEDICARE, SELFPAY | PROVIDERS: Visit Provider Nurse Practitioner | DX: M25.362 Other instability, left knee (principal); M17.12 Unilateral primary osteoarthritis, left knee; S82.192A Other fracture of upper end of left tibia, initial encounter for closed fracture; S72.435A Nondisplaced fracture of medial condyle of left femur, initial encounter for closed fracture; W54.1XXA Struck by dog, initial encounter | CPT/HCPCS: 73562; 99213 ==

== ENCOUNTER → 2024-06-22 11:31 | Outpatient (BNVA) | payer MEDICARE, SELFPAY | PROVIDERS: Visit Provider Nurse Practitioner | DX: M17.12 Unilateral primary osteoarthritis, left knee (principal); T14.8XXA Other injury of unspecified body region, initial encounter; L08.9 Local infection of the skin and subcutaneous tissue, unspecified; X58.XXXA Exposure to other specified factors, initial encounter; Z87.81 Personal history of (healed) traumatic fracture | CPT/HCPCS: 73562; 99213 ==

== ENCOUNTER → 2024-06-28 10:54 | Outpatient (BNVA) | payer MEDICARE, SELFPAY | PROVIDERS: Visit Provider Internal Medicine Rheumatology | DX: M05.79 Rheumatoid arthritis with rheumatoid factor of multiple sites without organ or systems involvement (principal); M81.0 Age-related osteoporosis without current pathological fracture; Z71.85 Encounter for immunization safety counseling; Z79.899 Other long term (current) drug therapy; M19.041 Primary osteoarthritis, right hand; M19.042 Primary osteoarthritis, left hand; Z96.651 Presence of right artificial knee joint; Z11.1 Encounter for screening for respiratory tuberculosis; Z11.59 Encounter for screening for other viral diseases | CPT/HCPCS: 36415; 80076; 82550; 85025; 86140; 99214 ==

== ENCOUNTER 2024-07-30 20:02 | Emergency (ER) | payer MEDICARE, SELFPAY ==
[2024-07-30 20:05] VITALS: BP 160/76; PULSE 79; RESP 14; TEMP 36.8; O2SAT 97; BMI 20.7
--- NOTE | 2024-07-30 20:36 | W.ED.WOUNDLC ---
HPI - Wound/Laceration General: Chief Complaint: Wound/Laceration Stated Complaint: lac on right leg Time Seen by Provider: 07/30/24 20:27 History of Present Illness: 69-year-old female who says she dropped a crockpot on her anterior right leg at the beginning of April. She has had a wound there since. The scab fell off a few days ago, and since that time, she has noticed increased redness, with drainage from the ulceration site. It is painful. She has not had a fever. She has a history of rheumatoid arthritis, and does take immune modification drugs. Related Data Home Medications Medication Instructions Recorded Confirmed biotin 10,000 mcg capsule 10,000 mcg PO 06/18/22 06/28/24 cholecalciferol (vitamin D3) 25 25 mcg PO DAILY 06/18/22 06/28/24 mcg (1,000 unit) capsule gabapentin 300 mg capsule 300 mg PO QID 06/18/22 06/28/24 potassium gluconate 550 mg (90 mg) 550 mg PO DAILY 06/18/22 06/28/24 tablet vitamin B complex (B 1 tab PO DAILY 06/18/22 06/28/24 Complex-Vitamin B12 tablet) zinc acetate PO 06/18/22 06/28/24 fluoxetine PO 08/10/23 06/28/24 pantoprazole [Protonix] PO 08/10/23 06/28/24 Previous Rx's Medication Instructions Recorded diclofenac sodium 1 % topical gel 2 g topical QID #100 grams 02/04/23 folic acid 1 mg tablet 1 mg PO DAILY #90 tabs 02/04/23 flexeril 5 mg PO TID PRN pain #25 tabs 04/08/23 hydroxychloroquine 200 mg tablet 200 mg PO DAILY #90 tabs 08/10/23 meloxicam 7.5 mg tablet 7.5 mg PO DAILY #180 tabs 05/11/24 eduardo range of motion brace #1 ea 05/13/24 hydrocodone 5 mg-acetaminophen 325 1 tab PO Q8H PRN pain 5 days #15 05/13/24 mg tablet tabs rolling walker #1 ea 05/13/24 cephalexin 500 mg capsule 500 mg PO TID 7 days #21 caps 06/22/24 mupirocin 2 % topical ointment 1 applic topical BID #15 grams 06/22/24 adalimumab 40 mg/0.8 mL 40 mg (0.8 mL) SUBCUT .every 7 06/29/24 subcutaneous pen kit (Humira Pen) days RA #4 ea methotrexate sodium 2.5 mg tablet See Rx Instructions PO .Q7days #90 06/30/24 tabs tramadol 50 mg tablet 50 mg PO TID PRN pain #60 tabs 06/30/24 prednisone 20 mg tablet 40 mg (2 x 20 mg) PO DAILY PRN RA 07/12/24 7 days #30 tabs doxycycline hyclate 100 mg tablet 100 mg PO BID 14 days #28 tabs 07/30/24 Allergies Allergy/AdvReac Type Severity Reaction Status Date / Time codeine Allergy Severe throat Verified 06/28/24 11:34 swell duloxetine [From Cymbalta] Allergy angry Verified 06/28/24 11:34 escitalopram [From Lexapro] Allergy rapid Verified 07/25/24 10:40 heart beat Sulfa (Sulfonamide AdvReac Mild rash Verified 06/28/24 11:34 Antibiotics) PFSH ED PFSH: Medical History Infected abrasion Fracture of medial condyle of femur Metaphyseal fracture of proximal end of tibia Instability of left knee joint Osteoarthritis of left knee Immunization counseling High risk medication use Seropositive rheumatoid arthritis of multiple sites Acute rheumatoid arthritis Cervical disc disease Rheumatoid arthritis Fibromyalgia Osteoporosis DJD (degenerative joint disease), lumbar Neuropathy Insomnia Bulging disc Surgical History History of hysterectomy Total knee replacement status right H/O shoulder replacement right History of appendectomy Family History Other Cancer Chronic kidney disease (CKD) Congestive heart failure (CHF) Diabetes Family history of premature coronary artery disease Rheumatoid arthritis Denies family history of Lupus Lung disease Stroke Social History Smoking and tobacco/nicotine status: current every day tobacco/nicotine user Physical Exam Const: COMMON NORMALS: no acute distress GENERAL APPEARANCE: cooperative; not ill appearing and not frail appearing HENMT: COMMON NORMALS: normocephalic and atraumatic HEAD & SCALP: normocephalic and atraumatic Eye: COMMON NORMALS: Equal, round and reactive pupils present and EOMs intact bilaterally PUPIL: Yes Equal, round and reactive pupils present Neck/C-Spine: GENERAL: Yes trachea midline Chest: CHEST: Yes Symmetrical chest wall rise Resp: COMMON NORMALS: normal respiratory effort, No retractions and No use of accessory muscles Cardio: COMMON NORMALS: regular rate and regular rhythm RATE: regular rate RHYTHM: regular rhythm Skin: NARRATIVE SKIN EXAM: Right anterior leg, chronic appearing skin ulceration with rolled border. There is purulent material at the base. It does not probe to bone. Surrounding beefy red cellulitic skin. No streaking. Minimal swelling. Course Vital Signs: Vital signs: Vital Signs Temperature 98.2 F 07/30/24 20:05 Pulse Rate 73 07/30/24 20:54 Respiratory Rate 14 07/30/24 20:05 Blood Pressure 97/42 07/30/24 20:54 Pulse Oximetry 97 07/30/24 20:54 Oxygen Delivery Me thod Room Air 07/30/24 20:05 MDM - Wound/Laceration Medical Decision Making Patient has a history of MRSA. She is allergic to sulfa medications. Will cover her with antibiotics, doxycycline, and referred to wound care, as this wound is now 3 months old No radiology studies performed this visit Discharge Plan Discharge Patient Disposition: Home Clinical Impression: Skin ulceration, Cellulitis Condition: Stable Prescriptions: New doxycycline hyclate 100 mg tablet 100 mg PO BID 14 Days Qty: 28 0RF No Action potassium gluconate 550 mg (90 mg) tablet 550 mg PO DAILY vitamin B complex [B Complex-Vitamin B12] Tablet 1 tab PO DAILY biotin 10,000 mcg capsule 10,000 mcg PO cholecalciferol (vitamin D3) 25 mcg (1,000 unit) capsule 25 mcg PO DAILY zinc acetate PO gabapentin 300 mg capsule 300 mg PO QID diclofenac sodium 1 % gel 2 g topical QID Qty: 100 2RF Rx Instructions: apply to affected area as needed folic acid 1 mg tablet 1 mg PO DAILY Qty: 90 3RF fluoxetine PO pantoprazole [Protonix] PO hydroxychloroquine 200 mg tablet 200 mg PO DAILY Qty: 90 1RF (DME) rolling walker See Rx Instructions .Route .MEDSUPPLY Qty: 1 0RF Rx Instructions: As directed (DME) eduardo range of motion brace See Rx Instructions .Route .MEDSUPPLY Qty: 1 0RF Rx Instructions: As directed hydrocodone-acetaminophen 5-325 mg tablet 1 tab PO Q8H PRN (Reason: pain) 5 Days Qty: 15 0RF cephalexin 500 mg capsule 500 mg PO TID 7 Days Qty: 21 0RF mupirocin 2 % ointment 1 applic topical BID Qty: 15 0RF meloxicam 7.5 mg tablet 7.5 mg PO DAILY Qty: 180 0RF Humira Pen 40 mg/0.8 mL pen injector kit 40 mg SUBCUT .every 7 days Qty: 4 5RF methotrexate sodium 2.5 mg tablet See Rx Instructions PO .Q7days Qty: 90 1RF Rx Instructions: take 6 tabs on same day once a week PO .Q7days; tramadol 50 mg tablet 50 mg PO TID PRN (Reason: pain) Qty: 60 1RF prednisone 20 mg tablet 40 mg PO DAILY PRN (Reason: RA) 7 Days Qty: 30 1RF Rx Instructions: 20 to 40 mg daily for up to 7 days for flares flexeril 5 mg PO TID PRN (Reason: pain ) Qty: 25 0RF Discharge Orders: Discharge ED (Routine); Ordered 07/30/24 Ordered By: Joey Pratt Referrals: Vasu Saeed MD [Primary Care Provider] - WOUND CARE CLINIC, [Staff Physician] - 4-7 days Patient Instructions: Opioid Safety, Pain Management Activity Restrictions/Additional Instructions: Antibiotics as directed. Continue to clean with antibacterial soap and running water. Call the wound care clinic at the number above on Thursday morning, let them know you were seen here with a chronic skin ulceration, and would like to be seen. Follow-up with your doctor. Remember to take antibiotics until they are finished. Return for fever or worsening symptoms. Coding Level of Care Code ED Auto Service Writer for Whitney Hagan
[2024-07-30] MEDS: doxycycline 100 mg Tablet PO (20:42)
[2024-07-30 20:43] VITALS: BP 159/78; PULSE 75; O2SAT 98
[2024-07-30 20:54] VITALS: BP 97/42; PULSE 73; O2SAT 97
== END 2024-07-30 20:55 | disposition home or self-care (01) ==
PROVIDERS: Emergency Provider Emergency Medicine; PCP Family Medicine
DX: L97.819 Non-pressure chronic ulcer of other part of right lower leg with unspecified severity (principal); L03.115 Cellulitis of right lower limb; Z72.0 Tobacco use
CPT/HCPCS: 87070; 87075; 87077; 87186; 87205; 99283

== ENCOUNTER → 2024-08-04 08:15 | Outpatient (BNVA) | payer MEDICARE, SELFPAY | PROVIDERS: PCP Family Medicine; Visit Provider Thoracic Surgery (Cardiothoracic Vascular Surgery) | DX: I96 Gangrene, not elsewhere classified (principal); S81.801A Unspecified open wound, right lower leg, initial encounter; W22.8XXA Striking against or struck by other objects, initial encounter; L03.115 Cellulitis of right lower limb | CPT/HCPCS: 11042; 99213; A6212; A6248 ==

== ENCOUNTER → 2024-08-10 14:30 | Outpatient (BNVA) | payer MEDICARE, SELFPAY | PROVIDERS: PCP Family Medicine; Visit Provider Thoracic Surgery (Cardiothoracic Vascular Surgery) | DX: I96 Gangrene, not elsewhere classified (principal); S81.801D Unspecified open wound, right lower leg, subsequent encounter; W22.8XXD Striking against or struck by other objects, subsequent encounter | CPT/HCPCS: 97597 ==

== ENCOUNTER → 2024-08-17 14:10 | Outpatient (BNVA) | payer MEDICARE, SELFPAY | PROVIDERS: PCP Family Medicine; Visit Provider Thoracic Surgery (Cardiothoracic Vascular Surgery) | DX: I96 Gangrene, not elsewhere classified (principal); L97.811 Non-pressure chronic ulcer of other part of right lower leg limited to breakdown of skin | CPT/HCPCS: 97597 ==

== ENCOUNTER → 2024-08-23 10:23 | Outpatient (BNVA) | payer MEDICARE, SELFPAY | PROVIDERS: PCP Family Medicine; Visit Provider Thoracic Surgery (Cardiothoracic Vascular Surgery) | DX: I96 Gangrene, not elsewhere classified (principal); W22.8XXD Striking against or struck by other objects, subsequent encounter; S81.801D Unspecified open wound, right lower leg, subsequent encounter | CPT/HCPCS: 11042; A6212 ==

== ENCOUNTER → 2024-08-30 10:45 | Outpatient (BNVA) | payer MEDICARE, SELFPAY | PROVIDERS: PCP Family Medicine; Visit Provider Thoracic Surgery (Cardiothoracic Vascular Surgery) | DX: I96 Gangrene, not elsewhere classified (principal); L97.812 Non-pressure chronic ulcer of other part of right lower leg with fat layer exposed | CPT/HCPCS: 11043; A6212 ==

== ENCOUNTER → 2024-09-05 13:15 | Outpatient (BNVA) | payer MEDICARE, SELFPAY | PROVIDERS: PCP Family Medicine; Visit Provider Thoracic Surgery (Cardiothoracic Vascular Surgery) | DX: I96 Gangrene, not elsewhere classified (principal); L97.812 Non-pressure chronic ulcer of other part of right lower leg with fat layer exposed | CPT/HCPCS: 11042; A6248 ==

== ENCOUNTER → 2025-02-01 10:53 | Outpatient (BNVA) | payer MEDICARE, SELFPAY | PROVIDERS: PCP Family Medicine; Visit Provider Internal Medicine Rheumatology | DX: M05.79 Rheumatoid arthritis with rheumatoid factor of multiple sites without organ or systems involvement (principal); Z79.899 Other long term (current) drug therapy; Z71.85 Encounter for immunization safety counseling; M81.0 Age-related osteoporosis without current pathological fracture | CPT/HCPCS: 36415; 80076; 82565; 85025; 85651; 86140; 99214 ==

== ENCOUNTER 2025-02-13 11:43 | Outpatient (CLI) | payer MEDICARE, SELFPAY ==
--- NOTE | 2025-02-13 11:55 | XRR_ITS ---
PROCEDURE INFORMATION: Exam: XR Cervical Spine Exam date and time: 02/13/2025 12:17 PM Age: 69 years old Clinical indication: Cervicalgia; 2.5 months pain in neck limited rom, pain and tingling runs down shoulders, HX of ra TECHNIQUE: Imaging protocol: Radiologic exam of the cervical spine. Views: 6 or more views. COMPARISON: CT cervical spin wo con* [id number] 04/08/2023 3:49 PM FINDINGS: Bones/joints: Mild reversal of the normal cervical lordosis. Slight anterolisthesis of C3 on C4. Disc space narrowing and spurring C3 through C7. Anatomic alignment. The prevertebral soft tissues are normal. No lytic or sclerotic bone lesion. Right shoulder replacement. . No acute fracture. Normal alignment. Soft tissues: See Bones/joints finding. XR/XR cervical spine min 6V [id number] IMPRESSION: Degenerative disc disease.
== END 2025-02-13 11:44 | disposition home or self-care (01) ==
LOC: RAD 11:49
PROVIDERS: PCP Family Medicine; Visit Provider Family Medicine
DX: M50.31 Other cervical disc degeneration, high cervical region (principal); M50.321 Other cervical disc degeneration at C4-C5 level; M50.322 Other cervical disc degeneration at C5-C6 level; M50.323 Other cervical disc degeneration at C6-C7 level; M25.78 Osteophyte, vertebrae
CPT/HCPCS: 72052

== ENCOUNTER → 2025-02-14 15:14 | Outpatient (BNVA) | payer MEDICARE, SELFPAY | PROVIDERS: PCP Family Medicine; Visit Provider Internal Medicine Rheumatology | DX: M70.62 Trochanteric bursitis, left hip (principal); M25.552 Pain in left hip | CPT/HCPCS: 20610; J1010; J9999 ==

== ENCOUNTER → 2025-05-10 10:50 | Outpatient (BNVA) | payer MEDICARE, SELFPAY | PROVIDERS: PCP Family Medicine; Visit Provider Podiatrist Foot & Ankle Surgery | DX: M25.572 Pain in left ankle and joints of left foot (principal); S82.892A Other fracture of left lower leg, initial encounter for closed fracture; X58.XXXA Exposure to other specified factors, initial encounter; I70.209 Unspecified atherosclerosis of native arteries of extremities, unspecified extremity | CPT/HCPCS: 99204 ==

== ENCOUNTER 2025-05-15 11:52 | Outpatient (CLI) | payer MEDICARE, SELFPAY ==
--- NOTE | 2025-05-15 12:00 | USCV_ITS ---
Ivory Hyatt Age: 69 Gender: F : 1955 Exam Date: 05/15/2025 12:08 Ordering Phys: Vasu Saeed MD Technologist: HAYDEE Exam Location: [facility] [place] Indication: bruit Risk Factors: Previous Vascular Surgery: Right Brachial BP: / Left Brachial BP: / Right Left Velocity (cm/s) Spectral Plaque Velocity (cm/s) Spectral Plaque Syst/Diast Broadening Syst/Diast Broadening 54.30/ 16.70 Prox CCA 47.10 / 8.60 48.90/ 15.00 Mid CCA 50.10 / 10.80 52.70/ 17.50 Distal CCA 52.10 / 14.20 50.20/ 16.20 Prox ICA 38.00 / 12.00 48.30/ 20.30 Mid ICA 79.20 / 27.00 69.80/ 23.70 Distal ICA 71.90 / 25.50 67.80 ECA 39.40 1.30 ICA/CCA 1.50 Antegrade Vertebral Antegrade 21.30/ 5.90 cm/s 24.10/ 5.20 cm/s Tri Subclavian Tri 77.20 64.10 CONCLUSIONS Right ICA stenosis <50%. Moderate atheromatous plaque right carotid bulb/ICA. Left ICA stenosis <50%. Moderate atheromatous plaque left carotid bulb/ICA. Intimal thickening in the common carotid arteries and internal carotid arteries bilaterally. Normal antegrade Doppler flow noted in the right vertebral artery. Normal antegrade Doppler flow noted in the left vertebral artery. Lake Bang MD (Electronically Signed) Final Date: 15 May 2025 13:25 S
== END 2025-05-15 11:53 | disposition home or self-care (01) ==
LOC: RAD 11:53
PROVIDERS: PCP Family Medicine; Visit Provider Family Medicine
DX: R09.89 Other specified symptoms and signs involving the circulatory and respiratory systems (principal); I65.23 Occlusion and stenosis of bilateral carotid arteries
CPT/HCPCS: 93880

== ENCOUNTER 2025-05-19 15:27 | Outpatient (CLI) | payer MEDICARE, SELFPAY ==
--- NOTE | 2025-05-19 15:30 | XR_ITS ---
WS: [id number] DEXA (DUAL ENERGY X-RAY ABSORPTIOMETRY) Bone mineral density was performed using a [employer] machine. HISTORY: OSTEOPOROSIS COMPARISON: 07/16/2022 Lumbar spine BMD (L1-L4): 0.929 g/cm2 T score: -2.1 Z score: -0.2 Total hip BMD: Left: 0.650 g/cm2. T score: -2.8 Z score: -1.1 Right: 0.571 g/cm2. T score: -3.5 Z score: -1.7 10 year probability of a major osteoporotic fracture is 51.8%. Compared to the prior study from 07/16/2022. Lumbar spine bone mineral density has increased by 5.8%. Bilateral hips bone mineral density has increased by 16.6%. XR/XR DEXA axial skeleton* [id number] IMPRESSION: OSTEOPOROSIS based upon the WHO classification for females. Significant increase in bone mineral density within both the hips and lumbar sp ine since the prior study.
== END 2025-05-19 15:28 | disposition home or self-care (01) ==
LOC: RAD 15:28
PROVIDERS: PCP Family Medicine; Visit Provider Family Medicine
DX: Z13.820 Encounter for screening for osteoporosis (principal); Z78.0 Asymptomatic menopausal state; M81.8 Other osteoporosis without current pathological fracture
CPT/HCPCS: 77080

== ENCOUNTER 2025-05-24 11:00 | Outpatient (CLI) | payer MEDICARE, SELFPAY | END 2025-05-24 11:01 | disposition home or self-care (01) | LOC: SPT 11:00 | PROVIDERS: PCP Family Medicine; Visit Provider Podiatrist Foot & Ankle Surgery | DX: Z46.89 Encounter for fitting and adjustment of other specified devices (principal); S82.892D Other fracture of left lower leg, subsequent encounter for closed fracture with routine healing; X58.XXXD Exposure to other specified factors, subsequent encounter | CPT/HCPCS: L1902 ==

== ENCOUNTER → 2025-06-14 11:03 | Outpatient (BNVA) | payer MEDICARE, SELFPAY | PROVIDERS: PCP Family Medicine; Visit Provider Internal Medicine Rheumatology | DX: M05.79 Rheumatoid arthritis with rheumatoid factor of multiple sites without organ or systems involvement (principal); Z79.899 Other long term (current) drug therapy; Z71.85 Encounter for immunization safety counseling; M81.0 Age-related osteoporosis without current pathological fracture; Z79.52 Long term (current) use of systemic steroids; Z96.651 Presence of right artificial knee joint | CPT/HCPCS: 36415; 80076; 82306; 82565; 85025; 85651; 86140; 86480; 86704; 86803; 87340; 99214 ==